=== PATIENT | male | born 1965 | race Caucasian/White ===

== ENCOUNTER 2017-05-30 08:57 | Emergency (ER) | payer BC, OTHER ==
[2017-05-30 09:01] VITALS: BP 168/80; PULSE 90; RESP 20; TEMP 98
[2017-05-30] MEDS ORDERED: TOPICAL SKIN ADHESIVE 1 EACH AMP TOPICAL ONE (09:25)
--- NOTE | 2017-05-30 09:49 | XR ---
EXAMINATION TYPE: XR hand complete RT DATE OF EXAM: 05/30/2017 COMPARISON: NONE HISTORY: Laceration TECHNIQUE: Three views are submitted. FINDINGS: The osseous structures are intact. There is narrowing of the third DIP joint and there is no acute fr acture or dislocation. There is a tiny metallic structure adjacent to the head metacarpal of the fir st and additional linear area adjacent to the head of the second metacarpal. IMPRESSION: 1. No definite acute fracture or dislocation if symptoms persist, follow-up study in 7 to 10 days wo uld be suggested. 2. Correlate for tiny metallic foreign body
--- NOTE | 2017-05-30 09:53 | ED ---
Wound/Laceration HPI - General Chief Complaint: Wound/Laceration Stated Complaint: Finger injury Time Seen by Provider: 05/30/17 09:09 Source: patient, RN notes reviewed, old records reviewed Mode of arrival: ambulatory Limitations: no limitations - History of Present Illness Initial Comments: This is a 51-year-old male presents emergency Department with a second digit injury. He reports that he was at work, and a metal piece of equipment sling and asked hand smashed. He has a laceration over the proximal dorsum of the digit. He reports his tetanus is up-to-date. He reports full range of motion of the finger.Patient denies any recent fever, chills, shortness of breath, chest pain, back pain, abdominal pain, nausea vomiting, numbness or tingling, dysuria or hematuria, constipation or diarrhea, headaches or visual changes, or any other current symptoms - Related Data Home Medications Medication Instructions Recorded Confirmed No Known Home Medications [No 05/30/17 05/30/17 Known Home Medications] Allergies Allergy/AdvReac Type Severity Reaction Status Date / Time No Known Allergies Allergy Verified 05/30/17 09:12 Review of Systems ROS Statement: Those systems with pertinent positive or pertinent negative responses have been documented in the HPI. ROS Other: All systems not noted in ROS Statement are negative. Past Medical History Past Medical History: No Reported History History of Any Multi-Drug Resistant Organisms: None Reported Past Surgical History: Hernia Repair Past Psychological History: No Psychological Hx Reported Smoking Status: Current every day smoker Past Alcohol Use History: Occasional Past Drug Use History: None Reported General Exam - General Exam Comments Initial Comments: This is a 51-year-old male. No distress. Limitations: no limitations General appearance: alert, in no apparent distress Head exam: Present: atraumatic, normocephalic, normal inspection Eye exam: Present: normal appearance, PERRL, EOMI. Absent: scleral icterus, conjunctival injection, periorbital swelling ENT exam: Present: normal exam, mucous membranes moist Neck exam: Present: normal inspection. Absent: tenderness, meningismus, lymphadenopathy Respiratory exam: Present: normal lung sounds bilaterally. Absent: respiratory distress, wheezes, rales, rhonchi, stridor Cardiovascular Exam: Present: regular rate, normal rhythm, normal heart sounds. Absent: systolic murmur, diastolic murmur, rubs, gallop, clicks GI/Abdominal exam: Present: soft, normal bowel sounds. Absent: distended, tenderness, guarding, rebound, rigid Extremities exam: Present: normal inspection, full ROM, normal capillary refill. Absent: tenderness, pedal edema, joint swelling, calf tenderness Right Forearm Wrist exam: Present: normal inspection, full ROM Hand Wrist exam: Present: full ROM, laceration (1 similar laceration over the proximal second digit.). Absent: normal inspection Back exam: Present: normal inspection Neurological exam: Present: alert, oriented X3, CN II-XII intact Psychiatric exam: Present: normal affect, normal mood Course Vital Signs 05/30/17 08:59 Temperature 98.0 F Pulse Rate 90 Respiratory 20 Rate Blood Pressure 168/80 O2 Sat by Pulse 99 Oximetry Procedures - Laceration Laceration #1 Site: hand (RIGHT 2ND DIGIT) Size (cm): 1 Description: linear Depth: simple, single layer Pre-repair: wound explored, irrigated extensively Type of Sutures: other (DERMABOND) Patient Tolerated Procedure: well, no complications Medical Decision Making - Medical Decision Making This patient states 1-year-old male presents today chief complaint of second digit laceration. He reports that he was at work, and a metal piece of equipment landed on his hand. The patient soak her roommate is probably 10 pounds. He has full range of motion of the finger, full extension and flexion. Patient reports his tetanus is up-to-date. He has a 1 Cm laceration over the proximal second digit. Wound was thoroughly irrigated with saline and Betadine. X-rays were completed. Patient x-ray shows noticed any acute fractures or dislocation within the hand. There is a small metallic foreign body between the left base of the first and second digit. Patient has no lacerations over the area at that time. Patient reports he occasionally is metal shaving some slivers in his hands. I am unable to identify the location of this metal piece at this time. I discussed that he should follow-up with his hand surgeon. He reports that he or he has to follow-up with him due to a poor tendon within the third digit of the right hand. Patient's wound was irrigated, closed with Dermabond. Discussed return parameters and monitoring for any signs of infection. Patient agrees to treatment plan will comply. Return parameters were discussed. Disposition Clinical Impression: Finger laceration Disposition: HOME SELF-CARE Condition: Good Instructions: Skin Adhesive Care (ED) Additional Instructions: Please leave wound covered for the first 24-48 hours and then leave open to air after that time. Please use clean soap and water to clean the area. Please watch for any signs of infection which may include but not limited to increased pain, swelling, redness, fever or chills. Please return to the emergency room if any signs of infection do occur. Please return to the emergency room for any other concerns or complications. Referrals: Armani Adrian MD [Primary Care Provider] - 1-2 days Time of Disposition: 10:09
== END 2017-05-30 13:55 | disposition home or self-care (01) ==
LOC: EC 08:57
DX: S61.210A Laceration without foreign body of right index finger without damage to nail, initial encounter (principal); F17.200 Nicotine dependence, unspecified, uncomplicated; W23.0XXA Caught, crushed, jammed, or pinched between moving objects, initial encounter; Y92.69 Other specified industrial and construction area as the place of occurrence of the external cause; Y99.0 Civilian activity done for income or pay
CPT/HCPCS: 12001; 99284

== ENCOUNTER 2024-08-10 12:01 | Day surgery (SDC) | payer BC ==
[~2024-08-10 12:01] MED LIST: LIDOCAINE 1% (10MG/ML) FOR IV START INTRADERMA PRN
[2024-08-10 12:40] VITALS: TEMP 98.6
[2024-08-10] MEDS: IV FLUID CONTINUATION 1,000 ML IV ONE (12:49)
[2024-08-10] MEDS: LACTATED RINGERS 1,000 ML IV SCH (12:51)
[2024-08-10] MEDS: MIDAZOLAM 2 MG/2 ML VIAL IV ONE (13:08)
[2024-08-10] MEDS ORDERED: PROPOFOL 10 MG/ML 20 ML VIAL IV ONE (13:27)
--- NOTE | 2024-08-10 13:41 | P.PCN ---
Date of Procedure: 08/10/24 Procedure(s) Performed: BRIEF HISTORY: Patient is a 58-year-old pleasant white male scheduled for an elective colonoscopy as a part of screening for colon cancer/positive Cologuard PROCEDURE PERFORMED: Colonoscopy with snare polypectomy. PREOPERATIVE DIAGNOSIS: Screening for colon cancer/positive Cologuard. IV sedation per Anesthesia. PROCEDURE: After informed consent was obtained, the patient, was brought into the endoscopy unit. IV sedation was administered by Anesthesia under continuous monitoring. Digital rectal examination was normal. Initially the Olympus CF-160 flexible video colonoscope was then inserted in the rectum, gradually advanced into the cecum without any difficulty. Careful examination was performed as the scope was gradually being withdrawn. Ileocecal valve and the appendiceal orifice were visualized and appeared normal. Prep was excellent. Mucosa of the cecum, ascending colon, transverse colon, descending colon, sigmoid colon, and rectum appeared normal. In the rectum there were 3 polyps measuring between 5 mm, 6 mm and 1 cm which were removed by snare polypectomy. Retroflexion was performed in the rectum and no lesions were seen. The patient tolerated the procedure well. IMPRESSION: 5 mm, 6 mm and 1 cm rectal polyp status post polypectomy Rest of the colon appeared normal. RECOMMENDATIONS: Findings of this examination were discussed with the patient as well as his family.. He was advised to follow-up with the biopsy results. If the biopsy reveals adenoma he can have repeat colonoscopy in 3 years
[2024-08-10 14:06] VITALS: BP 134/74; PULSE 86; RESP 16
== END 2024-08-10 14:20 | disposition home or self-care (01) ==
LOC: ORWHC2ENDO 12:01
PROVIDERS: ATTEND Internal Medicine Gastroenterology
DX: K62.1 Rectal polyp (principal); I10 Essential (primary) hypertension; J44.89 Other specified chronic obstructive pulmonary disease; Z87.891 Personal history of nicotine dependence; Z79.899 Other long term (current) drug therapy
CPT/HCPCS: 88305; 45385; J2250; J2704